=== PATIENT | female | born 1940 | race Hispanic/Latino ===

== ENCOUNTER 2019-07-12 19:14 | Emergency (ER) | payer MEDICARE ==
[~2019-07-12] VITALS: Ht 154.9 cm; Wt 71.2 kg
[2019-07-12 20:54] LABS: BASOPHILS % 0.1 % (0.0-1.0); EOSINOPHILS % 0.1 % (0.0-6.0); HEMATOCRIT 39.9 % (34.2-44.1); HEMOGLOBIN 13.4 g/dL (12.0-16.0); LYMPHOCYTES # (AUTO) 1.3 (1.0-3.2); LYMPHOCYTES % 9.2 % (18.0-39.1); MEAN CORPUSCULAR HEMOGLOBIN 31.3 pg (28-32); MEAN CORPUSCULAR HGB CONC 33.6 g/dL (31-35); MEAN CORPUSCULAR VOLUME 93.2 fL (81-99); MONOCYTES # (AUTO) 0.8 (0.2-0.8); MONOCYTES % 5.3 % (4.4-11.3); NEUTROPHILS # (AUTO) 12.1 (2.1-6.9); PLATELET COUNT 316 x10e3/uL (140-360); RED BLOOD COUNT 4.28 x10e6/uL (3.6-5.1); RED CELL DISTRIBUTION WIDTH 12.5 % (11.7-14.4)
--- NOTE | 2019-07-12 21:07 | Diagnostic Imaging Report ---
History: Fall Comparison studies:None Technique: Axial images were obtained from the brain and cervical spine. Coronal and sagittal images reconstructed from the axial data. Intravenous contrast: None Dose modulation, iterative reconstruction, and/or weight based adjustment of the mA/kV was utilized to reduce the radiation dose to as low as reasonably achievable. Findings: Head CT: Scalp/skull: No abnormalities. No fractures, blastic or lytic lesions. Brain sulci: Appropriate for age. Ventricles: Normal in size and configuration. No hydrocephalus. Extra-axial spaces: No masses. No fluid collections. Parenchyma: Few hypodensities of the supratentorial white matter. No masses, hemorrhage, acute or chronic cortical vascular insults. Sellar/suprasellar region: No abnormalities. Craniocervical junction: Patent foramen magnum. No Chiari one malformation. Cervical spine CT: Fractures: None. Soft tissues: No gross abnormalities. Atlantoaxial articulation: Intact. Alignment: Normal lordosis. No scoliosis. Cervicomedullary junction: No abnormalities. Patent foramen magnum. Vertebrae: No infection or neoplasm. Degenerative changes: Moderate degenerative bilateral foraminal narrowing C5-6. Incidental findings: Right palatine tonsil punctate calcifications. Impression: Head CT: 1. No acute abnormality. 2. Mild chronic microvascular ischemic. Cervical spine CT: 1. No acute abnormalities. 2. Cannot exclude ligament, spinal cord and or vascular abnormalities on the basis of this examination. Signed by: DR Garcia Muñoz M.D. on 07/12/2019 9:04 PM
[2019-07-12 21:12] LABS: ALANINE AMINOTRANSFERASE 12 IU/L (0-55); ALBUMIN 3.8 g/dL (3.5-5.0); ALKALINE PHOSPHATASE 51 IU/L (40-150); ANION GAP 16.1 mmol/L (8-16); BLOOD UREA NITROGEN 16 mg/dL (7-26); BUN/CREATININE RATIO 20 (6-25); CALCIUM 9.8 mg/dL (8.4-10.2); CARBON DIOXIDE 26 mmol/L (22-29); CHLORIDE 103 mmol/L (98-107); CREATINE KINASE 67 IU/L (29-168); CREATININE, SERUM 0.81 mg/dL (0.57-1.11); EST GLOMERULAR FILTRATION RATE > 60 ML/MIN (60-); GLUCOSE 176 mg/dL (74-118); POTASSIUM 4.1 mmol/L (3.5-5.1); SODIUM 141 mmol/L (136-145)
--- NOTE | 2019-07-12 22:08 | Diagnostic Imaging Report ---
Left complete knee. CPT CODE: 19373. INDICATION: Fall, left knee pain COMPARISON: No relevant priors FINDINGS: Comminuted fracture of the patella. No significant displacement of the fracture fragments. No patellar dislocation. Moderate joint effusion. The distal femur, proximal tibia, and proximal fibula are intact. No radiopaque foreign bodies in the soft tissues. IMPRESSION: Comminuted fracture of the patella without patellar dislocation. Signed by: Dr. Sathya Melendez MD on 07/12/2019 10:06 PM
--- NOTE | 2019-07-12 22:09 | Diagnostic Imaging Report ---
Right complete knee. CPT CODE: 97024. INDICATION: Fall COMPARISON: None FINDINGS: No evidence of acute fracture or dislocation. The visualized joint spaces of the knee are preserved. Small traction enthesophyte arising from the superior patella. No joint effusion. IMPRESSION: No acute traumatic pathology. Signed by: Dr. Sathya Melendez MD on 07/12/2019 10:07 PM
[2019-07-12] MEDS ORDERED: ULTRAM50 MG PO (22:33)
== END 2019-07-12 23:45 | disposition home or self-care (01) ==
LOC: ER 19:14
DX: S82.045A Nondisplaced comminuted fracture of left patella, initial encounter for closed fracture (principal); M25.562 Pain in left knee; M25.561 Pain in right knee; W01.0XXA Fall on same level from slipping, tripping and stumbling without subsequent striking against object, initial encounter; Y92.488 Other paved roadways as the place of occurrence of the external cause
CPT/HCPCS: 36415; 70450; 72125; 80053; 82550; 82553; 84484; 85025; 99284

== ENCOUNTER 2019-07-14 17:01 | Observation (INO) | payer MEDICARE, OTHER ==
[~2019-07-14] VITALS: Ht 157.5 cm; Wt 65.4 kg
[~2019-07-14 17:01] MED LIST: ULTRAM50 MG PO
[2019-07-14] MEDS ORDERED: SODIUM CHLORIDE 0.9% 1000ML 1,000 ML IV STA (17:03)
--- OUTSIDE RECORDS SUMMARY | 2019-07-14 17:03 | XMS REPORT ---
Author Author [facility] Address Unknown Phone Unavailable Care Team Providers Care Capacity Management Specialist Name Role Phone SHIN LOZANO Unavailable Unavailable Problems This patient has no known problems. Allergies, Adverse Reactions, Alerts This patient has no known allergies or adverse reactions. Medications This patient has no known medications. Results Test Description Test Time Test Comments Text Results Atomic Results Result Comments KNEE RIGHT THREE VIEWS 2019-07-12 22:06:00 [place] [address] Patient Name: KODY BANG MR #: [id number] : 1940 Age/Sex: 79/F Req #: [id number] Adm Physician: Ordered by: SHIN LOZANO DO Report #: [id number] Location: ER Room/Bed: Procedure: [id number] DX/KNEE RIGHT THREE VIEWS Exam Date: 07/12/19 Exam Time: 2119 REPORT STATUS: Signed Right complete knee. CPT CODE: 01719. INDICATION: Fall COMPARISON: None FINDINGS: No evidence of acute fracture or dislocation. The visualized joint spaces of the knee are preserved. Small traction enthesophyte arising from the superior patella. No joint effusion. IMPRESSION: No acute traumatic pathology. Signed by: Dr. August Melendez MD on 07/12/2019 10:07 PM Dictated By: AUGUST MELENDEZ MD 06 Transcribed By: AMY on 07/12/192206 COPY TO: SHIN LOZANO DO KNEE LEFT THREE VIEWS 2019-07-12 22:04:00 [place] [address] Patient Name: KODY BANG MR #: [id number] : 1940 Age/Sex: 79/F Req #: [id number] Adm Physician: Ordered by: SHIN LOZANO DO Report #: [id number] Location: ER Room/Bed: Procedure: [id number] DX/KNEE LEFT THREE VIEWS Exam Date: 07/12/19 Exam Time: 2119 REPORT STATUS: Signed Left complete knee. CPT CODE: 06111. INDICATION: Fall, left knee pain COMPARISON: No relevant priors FINDINGS: Comminuted fracture of the patella. No significant displacement of the fracture fragments. No patellar dislocation. Moderate joint effusion. The distal femur, proximal tibia, and proximal fibula are intact. No radiopaque foreign bodies in the soft tissues. IMPRESSION: Comminuted fracture of the patella without patellar dislocation. Signed by: Dr. August Melendez MD on 07/12/2019 10:06 PM Dictated By: AUGUST MELENDEZ MD 05 Transcribed By: AMY on 07/12/192205 COPY TO: SHIN LOZANO DO CT BRAIN WO 2019-07-12 20:51:00 [place] [address] Patient Name: KODY BANG MR #: [id number] : 1940 Age/Sex: 79[id number] Req #: [id number] [facility] Physician: Ordered by: SHIN LOZANO DO Report #: [id number] Location: ER Room/Bed: Procedure: [id number] CT/CT BRAIN WO Exam Date: 07/12/19 Exam Time: 2010 REPORT STATUS: Signed History: Fall Comparison studies:None Technique: Axial images were obtained from the brain and cervical spine. Coronal and sagittal images reconstructed from the axial data. Intravenous contrast: None Dose modulation, iterative reconstruction, and/or weight based adjustment of the mA/kV was utilized to reduce the radiation dose to as low as reasonably achievable. Findings: Head CT: Scalp/skull: No abnormalities. No fractures, blastic or lytic lesions. Brain sulci: Appropriate for age. Ventricles: Normal in size and configuration. No hydrocephalus. Extra-axial spaces: No masses. No fluid collections. Parenchyma: Few hypodensities of the supratentorial white matter. No masses, hemorrhage, acute or chronic cortical vascular insults. Sellar/suprasellar region: No abnormalities. Craniocervical junction: Patent foramen magnum. No Chiari one malformation. Cervical spine CT: Fractures: None. Soft tissues: No gross abnormalities. Atlantoaxial articulation: Intact. Alignment: Normal lordosis. No scoliosis. Cervicomedullary junction: No abnormalities. Patent foramen magnum. Vertebrae: No infection or neoplasm. Degenerative changes: Moderate degenerative bilateral foraminal narrowing C5-6. Incidental findings: Right palatine tonsil punctate calcifications. Impression: Head CT: 1. No acute abnormality. 2. Mild chronic microvascular ischemic. Cervical spine CT: 1. No acute abnormalities. 2. Cannot exclude ligament, spinal cord and or vascular abnormalities on the basis of this examination. Signed by: DR Garcia Muñoz M.D. on 07/12/2019 9:04 PM Dictated By: GARCIA WOODY MD 03 Transcribed By: AMY on 07/12/192103 COPY TO: SHIN LOZANO DO CT CERVICAL SPINE WO 2019-07-12 20:51:00 [place] [address] Patient Name: OKDY BANG MR #: [id number] : 1940 Age/Sex: 79/F Req #: [id number] Adm Physician: Ordered by: SHIN LOZANO DO Report #: [id number] Location: ER Room/Bed: Procedure: [id number] CT/CT CERVICAL SPINE WO Exam Date: 07/12/19 Exam Time: 2010 REPORT STATUS: Signed History: Fall Comparison studies:None Technique: Axial images were obtained from the brain and cervical spine. Coronal and sagittal images reconstructed from the axial data. Intravenous contrast: None Dose modulation, iterative reconstruction, and/or weight based adjustment of the mA/kV was utilized to reduce the radiation dose to as low as reasonably achievable. Findings: Head CT: Scalp/skull: No abnormalities. No fractures, blastic or lytic lesions. Brain sulci: Appropriate for age. Ventricles: Normal in size and configuration. No hydrocephalus. Extra-axial spaces: No masses. No fluid collections. Parenchyma: Few hypodensities of the supratentorial white matter. No masses, hemorrhage, acute or chronic cortical vascular insults. Sellar/suprasellar region: No abnormalities. Craniocervical junction: Patent foramen magnum. No Chiari one malformation. Cervical spine CT: Fractures: None. Soft tissues: No gross abnormalities. Atlantoaxial articulation: Intact. Alignment: Normal lordosis. No scoliosis. Cervicomedullary junction: No abnormalities. Patent foramen magnum. Vertebrae: No infection or neoplasm. Degenerative changes: Moderate degenerative bilateral foraminal narrowing C5-6. Incidental findings: Right palatine tonsil punctate calcifications. Impression: Head CT: 1. No acute abnormality. 2. Mild chronic landy rovascular ischemic. Cervical spine CT: 1. No acute abnormalities. 2. Cannot exclude ligament, spinal cord and or vascular abnormalities on the basis of this examination. Signed by: DR Garcia Muñoz M.D. on 07/12/2019 9:04 PM Dictated By: GARCIA WOODY MD 03 Transcribed By: AMY on 07/12/192103 COPY TO: SHIN LOZANO DO
[2019-07-14 17:47] LABS: BASOPHILS % 0.3 % (0.0-1.0); HEMATOCRIT 36.8 % (34.2-44.1); HEMOGLOBIN 12.5 g/dL (12.0-16.0); LYMPHOCYTES # (AUTO) 1.6 (1.0-3.2); LYMPHOCYTES % 16.5 % (18.0-39.1); MEAN CORPUSCULAR HEMOGLOBIN 31.6 pg (28-32); MEAN CORPUSCULAR VOLUME 93.2 fL (81-99); MONOCYTES # (AUTO) 0.4 (0.2-0.8); MONOCYTES % 3.9 % (4.4-11.3); NEUTROPHILS # (AUTO) 7.4 (2.1-6.9); PLATELET COUNT 278 x10e3/uL (140-360); RED BLOOD COUNT 3.95 x10e6/uL (3.6-5.1); RED CELL DISTRIBUTION WIDTH 12.3 % (11.7-14.4)
--- NOTE | 2019-07-14 17:51 | Diagnostic Imaging Report ---
Examination: Single AP view of the chest. COMPARISON: None. INDICATION: nausea vomiting DISCUSSION: Lines/tubes: None. Lungs: The lungs are well inflated and clear. No pneumonia or pulmonary edema. Pleura: No pleural effusion or pneumothorax. Heart and mediastinum: The heart and the mediastinum are unremarkable. Bones and soft tissues: No acute bony abnormalities. IMPRESSION: 1. No acute cardiopulmonary abnormalities. Signed by: Dr. Reymundo Quinones M.D. on 07/14/2019 5:49 PM
[2019-07-14 18:03] LABS: ALANINE AMINOTRANSFERASE 11 IU/L (0-55); ALBUMIN 3.5 g/dL (3.5-5.0); ALBUMIN/GLOBULIN RATIO 0.9 (0.8-2.0); ALKALINE PHOSPHATASE 46 IU/L (40-150); ANION GAP 15.9 mmol/L (8-16); BLOOD UREA NITROGEN 12 mg/dL (7-26); BUN/CREATININE RATIO 19 (6-25); CALCIUM 9.2 mg/dL (8.4-10.2); CARBON DIOXIDE 23 mmol/L (22-29); CHLORIDE 101 mmol/L (98-107); CREATINE KINASE 43 IU/L (29-168); CREATININE, SERUM 0.63 mg/dL (0.57-1.11); EST GLOMERULAR FILTRATION RATE > 60 ML/MIN (60-); GLUCOSE 157 mg/dL (74-118); POTASSIUM 3.9 mmol/L (3.5-5.1); SODIUM 136 mmol/L (136-145)
--- NOTE | 2019-07-14 18:06 | Diagnostic Imaging Report ---
CT BRAIN WO HISTORY: Dizziness, nausea COMPARISON: Head CT 07/12/2019 Technique: Noncontrast axial scans were obtained from skull base to the vertex. Coronal and sagittal reconstructions obtained from the axial data. One or more of the following dose reduction techniques were used: Automated exposure control, adjustment of the mA and/or kV according to patient size, and/or utilization of iterative reconstruction technique. DISCUSSION: Scalp/Skull: Unremarkable. Brain sulci: Mildly prominent. Ventricles: Compensatory dilatation. Extra-axial spaces: No masses or fluid collections. Carotid siphon calcifications are present. Parenchyma: Mild bilateral deep white matter hypodensity is likely chronic microvascular ischemic change. Otherwise, no masses, hemorrhage, or large vascular territory acute infarct. Dural sinuses: No abnormal densities. Sellar/Suprasellar region: Intact. Skull base: Intact. Incidental findings: None. IMPRESSION: 1. No acute intracranial abnormalities. 2. Mild supratentorial chronic microvascular ischemic change. Mild generalized cerebral volume loss. Signed by: Dr. Vladimir Salomon M.D. on 07/14/2019 6:04 PM
[2019-07-14] MEDS ORDERED: ONDANSETRON HCL INJ 2MG/ML 2ML 2 MG/ML VIAL IV PRN (18:30)
[2019-07-14] MEDS ORDERED: MORPHINE SULFATE INJ 4 MG/ML INJ 1ML IV PRN (18:30)
[2019-07-14] MEDS ORDERED: SODIUM CHLORIDE FLUSH 10 ML SYR INJ PRN (18:30)
--- NOTE | 2019-07-14 19:37 | NUR ---
79 YR OLD FEMALE RECEIVED VIA W/C FROM ER. PT C/O OF NAUSEA,VOMITING,AND DIZZINESS. VS STABLE.PT ON TELE MONITOR #8 SR. LUNGS CLEAR. NO EDEMA NOTED BILATERAL LOWER EXTREMITIES. PT FELL IN PARKING LOT -FX LEFT KNEE SEEN BY DR DANIELLE FUENTES.HINGED BRACE LOCKED IN STRAIGHT POSITION ON LEFT LEG. FAMILY REPORTS PT HAS TO WEAR FOR 8 WEEKS- DR UNABLE TO DO SURG ON HER. PT HAS BEEN TAKING TRAMADOL PRN PAIN AT HOME. PIV LEFT AC 20G. DAUGHTERS DENIED MEDICAL HX OTHER THAN CYST REMOVAL AND FX LEFT KNEE.DAUGHTERS WENT HOME. PT IRISH SPEAKING. ORIENTED TO ROOM,PMC, CALL LIGHT. BED IN LOW POSITION.
[2019-07-14 19:50] VITALS: BP 157/82
[2019-07-14 20:00] VITALS: BP 157/82
[2019-07-14] MEDS: SODIUM CHLORIDE 0.9% 1000ML 1,000 ML IV SCH (20:21)
[2019-07-14 22:19] LABS: BACTERIA,URINE FEW /HPF; BILIRUBIN,URINE NEGATIVE (NEGATIVE); CLARITY,URINE CLEAR (CLEAR); COLOR,URINE YELLOW (YELLOW); EPITHELIAL CELLS,URINE MODERATE /LPF; KETONES,URINE NEGATIVE (NEGATIVE); LEUKOCYTE ESTERASE ,URINE NEGATIVE (NEGATIVE); NITRITE,URINE NEGATIVE (NEGATIVE); PROTEIN,URINE DIPSTICK NEGATIVE (NEGATIVE); URINE UROBILINOGEN 0.2 mg/dL (0.2 - 1); WBC,URINE (MAN) 0-5 /HPF (0-5)
[2019-07-15] VITALS: BP 153/78
[2019-07-15] MEDS: SODIUM CHLORIDE 0.9% 1000ML 1,000 ML IV SCH (03:47)
[2019-07-15 04:32] VITALS: BP 151/70
--- NOTE | 2019-07-15 07:29 | NUR ---
Pt received in bed with eyes open aox4 and able to verbalize needs. Pt is Sudanese speaking. Immobilizer to left leg in place. 0 s/s of acute distress noted.
[2019-07-15 08:11] VITALS: BP 167/79
[2019-07-15] MEDS ORDERED: HYDRALAZINE HCL 20 MG/ML VIAL IV PRN (08:15)
[2019-07-15] MEDS ORDERED: ONDANSETRON HCL INJ 2MG/ML 2ML 2 MG/ML VIAL IV PRN (08:15)
[2019-07-15] MEDS ORDERED: MELATONIN 3 MG TAB PO PRN (08:15)
[2019-07-15] MEDS ORDERED: ACETAMINOPHEN 325 MG TAB PO PRN (08:15)
[2019-07-15 08:30] VITALS: BP 167/79
[2019-07-15 09:10] LABS: CHOL/HDL RATIO 3.7 (3.0-3.6)
[2019-07-15 09:30] LABS: THYROID STIMULATING HORMONE 1.012 uIU/mL (0.350-4.940)
--- NOTE | 2019-07-15 10:55 | Diagnostic Imaging Report ---
MRI BRAIN WO HISTORY: Dizziness COMPARISON: Head CT 07/14/2019 TECHNIQUE: Sagittal T2, axial T2, axial T1, axial T2/FLAIR, axial gradient echo (or susceptibility weighted), coronal T2/FLAIR, and axial diffusion weighted MR images of the brain were obtained without contrast. DISCUSSION: Scalp/bone marrow: Unremarkable. Brain sulci: Prominent. Ventricles: Compensatory dilatation. Extra-axial spaces: No masses or fluid collections. Parenchyma: Scattered T2/FLAIR hyperintense foci throughout the supratentorial white matter are likely chronic microvascular ischemic changes. Otherwise, no mass, hemorrhage, or acute vascular insults. Vessels: Normal flow voids in major arteries and veins. Sellar/Suprasellar region: No abnormalities. Craniocervical junction: No abnormalities. Incidental findings: None. IMPRESSION: 1. No acute intracranial abnormalities. 2. Mild supratentorial chronic microvascular ischemic change. 3. Mild generalized cerebral volume loss. Signed by: Dr. Vladimir Salomon M.D. on 07/15/2019 10:53 AM
[2019-07-15] MEDS ORDERED: LOSARTAN POTASSIUM 25 MG TAB PO SCH (12:15)
[2019-07-15 12:49] VITALS: BP 167/71
[2019-07-15] MEDS ORDERED: LIPITOR20 MG PO (13:03)
[2019-07-15] MEDS ORDERED: LOSARTAN POTASS25 MG PO (13:05)
--- NOTE | 2019-07-15 15:28 | NUR ---
Pt discharged home at this time. 0 s/s of acute distress noted. Pt and family verbalized understanding of all discharge instructions and follow up appointment.
--- NOTE | 2019-07-15 19:59 | Consultation ---
DATE OF CONSULTATION: 07/15/2019 Cardiology Consultation. CONSULTING PHYSICIAN: Andi Castanon MD REASON FOR CONSULTATION: Dizziness and also premature atrial contraction. HISTORY OF PRESENT ILLNESS: Ms. Miracle Pringle is a 79-year-old female with a pertinent past medical history of breast cancer status post mastectomy on the left. She reports that she has been in good health up until July 12 where she tripped and fell and as a result is on immobilizer under the care of Dr. Mclean. She reports for pain control she was initiated on tramadol on the and starting the she started experiencing some dizziness that progressively got worse and also associated nausea and vomiting. She reports these issues have resolved. She was admitted and came into the hospital. She also denies any chest pain, shortness of breath, palpitations, syncope, abdominal pain, nausea, vomiting, diarrhea, dysuria, fever, or chills. REVIEW OF SYSTEMS: Negative except as mentioned above. PAST MEDICAL HISTORY: Breast cancer. PAST SURGICAL HISTORY: Mastectomy and left wrist surgery. FAMILY HISTORY: Noncontributory. PHYSICAL EXAMINATION: VITAL SIGNS: Temperature 97.2, pulse 68, respiratory rate 20, blood pressure 167/79, and oxygen saturation 98% on room air. GENERAL: Alert and oriented x3. Resting comfortably in bed. Does not appear to be in any acute distress. NECK: Supple. No JVD noted. No carotid bruits. LUNGS: Clear to auscultation throughout. No wheezing. No rhonchi or crackles. CARDIOVASCULAR: Regular rate and rhythm. Normal S1, S2. No murmurs, no gallops. ABDOMEN: Soft and nontender. Normoactive bowel sounds. EXTREMITIES: Lower extremity, no edema. 2+ pedal pulses. Immobilizer noted to the left leg. CARDIOVASCULAR MEDICATIONS: Hydralazine 10 mg IV p.r.n. for hypertension. LABORATORY DATA: No new labs today. From yesterday WBC 9.40, hemoglobin 12.5, hematocrit 36.8, and platelets 278. Sodium 136, potassium 3.9, BUN 12, and creatinine 0.63. Glucose 157. AST 17 and ALT 11. Alkaline phosphatase 46. BNP 160.2. Triglycerides 73. Total cholesterol 222. LDL 147. TSH 1.012. IMAGING DATA: Brain MRI with no acute intracranial abnormalities. Brain CT with no acute intracranial abnormalities. Mild chronic microvascular ischemic changes. Carotid ultrasound and echocardiogram normal. TELEMETRY: Normal sinus rhythm. IMPRESSION: 1. Dizziness, nausea and vomiting. 2. Hypertension. 3. Left lower extremity injury. 4. History of breast cancer. RECOMMENDATION: All studies currently with no new concerns. Echocardiogram and carotid ultrasounds were normal. Losartan initiated to manage hypertension. Dizziness, nausea and vomiting likely secondary to initiation of tramadol to manage her pain. This medication should not be resumed upon discharge. Consider other pain medications for pain control. No further cardiac workup or followup required at this time. Proper management of hypertension advised to the patient and close followup with primary care doctor. Thank you for this consultation and allowing us to participate in this patient's care. Dictated by Lisa Aguilera NP MD MIKY RomeoV/KYRA /[id number]
[2019-07-15] MEDS ORDERED: ATORVASTATIN 20 MG TAB PO SCH (21:00)
--- NOTE | 2019-07-16 09:31 | Discharge Summary ---
ADMISSION DIAGNOSES: Dizziness, fall, possible arrhythmia. DISCHARGE DIAGNOSES: Dizziness, fall, possible arrhythmia, rule out arrhythmia plus rule out cerebrovascular accident. HISTORY: Breast cancer with chemo. SURGICAL HISTORY: Left breast cancer removal. FAMILY HISTORY: Noncontributory. SOCIAL HISTORY: Noncontributory. HOSPITAL COURSE: A 79-year-old female, admits with complaints of falls and dizziness. She fell due to a trip on 07/12/2019, and went to Dr. Humphries, who put her left lower extremity in a mobilizer for 8 weeks due to a fractured patella. She now uses a walker at baseline. Prior to coming to the ER, she says she got dizzy. The patient had a chest x-ray, which was negative. CT of the brain, which showed no acute abnormality. MRI of the brain showed no acute abnormalities. Carotid Doppler which was negative. Echo with EF of 60%. Her lipid panel showed elevated cholesterol, so she was given a prescription for Lipitor. TSH was within normal limits and orthostatic vitals were negative. Cardiology was consulted, who cleared the patient for discharge, but started her on losartan. The patient will discharge home and follow up with primary care in 1 to 2 weeks. The patient understands discharge instructions and agrees to plan. Vital signs stable. The patient is afebrile. Dictated by Marj Hernandez NP MD VINOD Robles/KYRA /[id number]
== END 2019-07-15 15:21 | disposition home or self-care (01) ==
LOC: ER 17:01 → ERHOLD 18:22 → MED/SURG 19:37
PROVIDERS: ADMIT Internal Medicine; ATTEND Internal Medicine
CPT/HCPCS: 36415; 70450; 70551; 71045; 80053; 80061; 81001; 82550; 82553; 83036; 83880; 84443; 84484; 85025; 93005; 93306; 93880; 99284; G0378; J7030

== ENCOUNTER 2020-10-11 11:03 | Emergency (ER) | payer MEDICARE, OTHER ==
[~2020-10-11] VITALS: Ht 149.9 cm; Wt 65.8 kg
[~2020-10-11 11:03] MED LIST changes: +LIPITOR20 MG PO; +LOSARTAN POTASS25 MG PO
[2020-10-11] MEDS ORDERED: SODIUM CHLORIDE 0.9% 1000ML 1,000 ML IV STA (11:14)
[2020-10-11 11:44] LABS: BASOPHILS % 0.1 % (0.0-1.0); HEMATOCRIT 39.2 % (34.2-44.1); HEMOGLOBIN 13.3 g/dL (12.0-16.0); LYMPHOCYTES # (AUTO) 1.3 (1.0-3.2); LYMPHOCYTES % 19.4 % (18.0-39.1); MEAN CORPUSCULAR HEMOGLOBIN 30.6 pg (28-32); MEAN CORPUSCULAR HGB CONC 33.9 g/dL (31-35); MEAN CORPUSCULAR VOLUME 90.3 fL (81-99); MONOCYTES # (AUTO) 0.4 (0.2-0.8); MONOCYTES % 5.2 % (4.4-11.3); NEUTROPHILS # (AUTO) 5.2 (2.1-6.9); NEUTROPHILS % 74.6 % (38.7-80.0); PLATELET COUNT 301 x10e3/uL (140-360); RED BLOOD COUNT 4.34 x10e6/uL (3.6-5.1); RED CELL DISTRIBUTION WIDTH 12.9 % (11.7-14.4)
[2020-10-11 12:01] LABS: INR 0.93; PROTHROMBIN TIME 13.1 seconds (11.9-14.5)
[2020-10-11 12:02] LABS: PARTIAL THROMBOPLASTIN TIME 32.6 seconds (23.8-35.5)
[2020-10-11 12:06] LABS: ALANINE AMINOTRANSFERASE 71 IU/L (0-55); ALBUMIN/GLOBULIN RATIO 0.6 (0.8-2.0); ALKALINE PHOSPHATASE 66 IU/L (40-150); ANION GAP 18.1 mmol/L (8-16); BLOOD UREA NITROGEN 12 mg/dL (7-26); BUN/CREATININE RATIO 17 (6-25); CALCIUM 8.4 mg/dL (8.4-10.2); CARBON DIOXIDE 20 mmol/L (22-29); CHLORIDE 96 mmol/L (98-107); CREATINE KINASE 142 IU/L (29-168); CREATININE, SERUM 0.69 mg/dL (0.57-1.11); EST GLOMERULAR FILTRATION RATE > 60 ML/MIN (60-); GLUCOSE 108 mg/dL (74-118); MAGNESIUM 2.1 MG/DL (1.3-2.1); POTASSIUM 4.1 mmol/L (3.5-5.1); SODIUM 130 mmol/L (136-145)
[2020-10-11] MEDS ORDERED: BAMLANIVIMAB / ETESEVIMAB 2,100 MG in SODIUM CHLORIDE 0.9% 250ML 250 ML IV ONE (14:30)
== END 2020-10-11 18:01 | disposition home or self-care (01) ==
LOC: ER 11:04
DX: U07.1 COVID-19 (principal); R11.10 Vomiting, unspecified; R42 Dizziness and giddiness; I10 Essential (primary) hypertension
CPT/HCPCS: 36415; 70450; 71045; 80053; 82550; 82553; 83735; 83880; 84484; 85025; 85610; 85730; 93005; 99284; J7030; J7050; U0002